=== PATIENT | male | born 1980 | race Caucasian/White ===

== ENCOUNTER 2017-08-12 01:51 | Emergency (ER) | payer BC ==
[~2017-08-12] VITALS: Ht 160 cm; Wt 72.6 kg
[~2017-08-12 01:51] MED LIST: BUSP10TA3 PO
[2017-08-12] MEDS ORDERED: LEVE1000 PO (02:08)
[2017-08-12] MEDS ORDERED: ONDANSETRON 4 MG/2 ML VIAL IV ONE (02:15)
[2017-08-12] MEDS ORDERED: LEVETIRACETAM IV 1,000 MG in IV DEXTROSE 5% 100 ML IV ONE (02:15)
[2017-08-12] MEDS ORDERED: METOCLOPRAMIDE HCL 10 MG/2 ML VIAL IV ONE (02:15)
[2017-08-12] MEDS ORDERED: IV NORMAL SALINE 1000 ML BAG IV ONE (02:15)
[2017-08-12 02:25] LABS: BASOPHILS # (AUTO) 0.2 K/uL (0.0-8.0); BASOPHILS % (AUTO) 1.3 % (0.0-2.0); HEMATOCRIT 47.9 % (40-50); HEMOGLOBIN 16.3 G/DL (14.0-18.0); LYMPHOCYTES # (AUTO) 1.1 K/UL (0.8-4.8); LYMPHOCYTES % (AUTO) 7.9 % (20.5-51.5); MEAN CORPUSCULAR HEMOGLOBIN 28.5 UUG (27.0-31.0); MEAN CORPUSCULAR HGB CONC 34 g/dL (32.0-37.0); MEAN CORPUSCULAR VOLUME 83.6 FL (82.0-92.0); MONOCYTES # (AUTO) 0.5 K/UL (0.1-1.30); MONOCYTES % (AUTO) 3.6 % (0.0-11.0); NEUTROPHILS # (AUTO) 12.5 K/UL (1.8-8.9); NEUTROPHILS % (AUTO) 87.2 % (38.5-71.5); PLATELET COUNT (AUTO) 284 K/UL (150-450); RED BLOOD CELL COUNT(AUTO) 5.73 MIL/UL (4.7-6.1); WHITE BLOOD COUNT (AUTO) 14.3 K/UL (4.0-11.2)
[2017-08-12] MEDS ORDERED: LEVETIRACETAM 500 MG/5 ML VIAL IV ONE (02:30)
[2017-08-12] MEDS ORDERED: METOCLOPRAMIDE HCL 10 MG/2 ML VIAL ONE (02:30)
[2017-08-12] MEDS ORDERED: ONDANSETRON 4 MG/2 ML VIAL ONE (02:31)
[2017-08-12 02:35] LABS: CREATININE 0.9 mg/dL (0.6-1.3); POTASSIUM 3.4 mmol/L (3.5-5.1)
[2017-08-12 02:41] LABS: BILIRUBIN,DIRECT 0.1 mg/dL (0.0-0.2); BILIRUBIN,TOTAL 0.8 mg/dL (0.2-1.0)
[2017-08-12] MEDS ORDERED: LORAZEPAM 0.5 MG TABLET PO ONE (02:45)
[2017-08-12] MEDS ORDERED: IOHEXOL 300MG/ML 100 ML INFUS..BTL ONE (02:54)
[2017-08-12] MEDS ORDERED: NORMAL SALINE FLUSH 10 ML DISP.SYRIN ONE (02:55)
[2017-08-12] MEDS ORDERED: IV NORMAL SALINE 250 ML IV ONE (02:55)
[2017-08-12] MEDS ORDERED: IV D5W-0.45% NS +20 KCL 1,000 ML IV ONE (03:13)
[2017-08-12] MEDS ORDERED: POTASSIUM CHLORIDE 20 MEQ TAB.PRT.SR PO ONE (03:15)
[2017-08-12] MEDS ORDERED: LORAZEPAM 1 MG TABLET ONE (03:27)
[2017-08-12] MEDS ORDERED: POTASSIUM CHLORIDE 20 MEQ TAB.PRT.SR ONE (03:42)
--- NOTE | 2017-08-12 03:58 | NUR ---
mse completed, all meds and iv fluids administered,pt tolerated po fluids and meds, pt had iv d/c'dintact. aci/rx [id number] ,pt got dressed and ambulatyed w/o diff/took all belongings. momtodrive.
[2017-08-12 04:07] VITALS: BP 135/75
== END 2017-08-12 04:00 | disposition home or self-care (01) ==
LOC: ER 01:51
DX: R10.84 Generalized abdominal pain (principal); R11.2 Nausea with vomiting, unspecified; G40.909 Epilepsy, unspecified, not intractable, without status epilepticus; G47.00 Insomnia, unspecified; F11.20 Opioid dependence, uncomplicated
CPT/HCPCS: 36415; 74177; 80048; 80076; 83690; 85025; 96360; 96365; 96375; 99285; A4663; J1953; J2405; J2765; J3490 ×2; J7050; Q9967

== ENCOUNTER 2017-08-14 03:59 | Emergency (ER) | payer BC ==
[~2017-08-14] VITALS: Ht 160 cm; Wt 72.6 kg
[~2017-08-14 03:59] MED LIST changes: -BUSP10TA3 PO; +LEVE1000 PO
[2017-08-14] MEDS ORDERED: ONDA4TAB8 PO (04:07)
[2017-08-14] MEDS ORDERED: DICY20TA32 PO (04:07)
[2017-08-14] MEDS ORDERED: LORA2TAB PO (04:07)
--- NOTE | 2017-08-14 04:10 | NUR ---
Francisca brought into ER by family member for C/O N/V. Was seen here 2 days ago for similar complaint
[2017-08-14] MEDS ORDERED: IV NORMAL SALINE 1000 ML BAG IV ONE (04:15)
[2017-08-14] MEDS ORDERED: ONDANSETRON 4 MG/2 ML VIAL IV ONE (04:15)
[2017-08-14 04:32] LABS: BASOPHILS # (AUTO) 0.1 K/uL (0.0-8.0); BASOPHILS % (AUTO) 0.9 % (0.0-2.0); EOSINOPHILS % (AUTO) 0.1 % (0.0-7.0); HEMATOCRIT 49.7 % (40-50); HEMOGLOBIN 16.6 G/DL (14.0-18.0); LYMPHOCYTES % (AUTO) 7.4 % (20.5-51.5); MEAN CORPUSCULAR HEMOGLOBIN 28.3 UUG (27.0-31.0); MEAN CORPUSCULAR HGB CONC 33 g/dL (32.0-37.0); MEAN CORPUSCULAR VOLUME 84.8 FL (82.0-92.0); MONOCYTES # (AUTO) 0.3 K/UL (0.1-1.30); MONOCYTES % (AUTO) 1.9 % (0.0-11.0); NEUTROPHILS # (AUTO) 11.8 K/UL (1.8-8.9); NEUTROPHILS % (AUTO) 89.7 % (38.5-71.5); PLATELET COUNT (AUTO) 298 K/UL (150-450); RED BLOOD CELL COUNT(AUTO) 5.86 MIL/UL (4.7-6.1); WHITE BLOOD COUNT (AUTO) 13.2 K/UL (4.0-11.2)
[2017-08-14] MEDS ORDERED: ONDANSETRON 4 MG/2 ML VIAL ONE (04:35)
[2017-08-14 04:45] LABS: BILIRUBIN,DIRECT 0.1 mg/dL (0.0-0.2); BILIRUBIN,TOTAL 0.7 mg/dL (0.2-1.0); CREATININE 0.9 mg/dL (0.6-1.3); POTASSIUM 3.7 mmol/L (3.5-5.1)
--- NOTE | 2017-08-14 05:00 | NUR ---
Gave patient PO challenge
--- NOTE | 2017-08-14 05:29 | NUR ---
Patient able to tolerate 200ml of H2O with no N/V
--- NOTE | 2017-08-14 05:30 | NUR ---
IV removed. Catheter intact and site benign. Pressure and 4x4 gauze applied to site. No bleeding noted.
[2017-08-14 05:37] VITALS: BP 138/82
--- NOTE | 2017-08-14 05:37 | NUR ---
Patient discharged to home in stable conditon with brother taking patient home. Written and verbal after care instructions given. Patient verbalizes understanding of instructions. Walked out of ER with no distress noted
== END 2017-08-14 05:38 | disposition home or self-care (01) ==
LOC: ER 04:03
DX: G40.909 Epilepsy, unspecified, not intractable, without status epilepticus (principal); R11.2 Nausea with vomiting, unspecified
CPT/HCPCS: 36415; 83690; 85025; A4663; J2405; J7030

== ENCOUNTER 2017-12-25 10:15 | Inpatient (IN) | payer BC ==
[~2017-12-25] VITALS: Ht 160 cm; Wt 74.8 kg
[~2017-12-25 10:15] MED LIST changes: +DICY20TA32 PO; +LORA2TAB PO; +ONDA4TAB8 PO
[2017-12-25] MEDS ORDERED: ONDANSETRON 4 MG/2 ML VIAL IV ONE (10:30)
[2017-12-25] MEDS ORDERED: FAMOTIDINE. 20 MG/2 ML VIAL IV ONE ×2 (10:30→10:47)
[2017-12-25] MEDS ORDERED: IV NORMAL SALINE 1000 ML BAG IV ONE (10:30)
[2017-12-25] MEDS ORDERED: BUPR1FIL SL (10:32)
--- NOTE | 2017-12-25 10:45 | NUR ---
PT IS IN ROOM #1A. DR GOOD EVALUATED THE PT.
[2017-12-25] MEDS ORDERED: ONDANSETRON 4 MG/2 ML VIAL ONE ×2 (10:47→11:52)
[2017-12-25 10:55] LABS: BASOPHILS % (AUTO) 0.2 % (0.0-2.0); HEMATOCRIT 48.6 % (36.7-47.1); HEMOGLOBIN 16.4 g/dL (12.5-16.3); LYMPHOCYTES # (AUTO) 0.8 K/uL (20.0-40.0); LYMPHOCYTES % (AUTO) 4.7 % (20.5-51.5); MEAN CORPUSCULAR HEMOGLOBIN 29.3 uug (23.8-33.4); MEAN CORPUSCULAR HGB CONC 34 g/dL (32.5-36.3); MEAN CORPUSCULAR VOLUME 86.8 fL (73.0-96.2); MONOCYTES # (AUTO) 0.3 K/uL (2.0-10.0); NEUTROPHILS # (AUTO) 16.4 K/uL (1.8-8.9); NEUTROPHILS % (AUTO) 93.1 % (38.5-71.5); PLATELET COUNT (AUTO) 350 K/uL (152-348); WHITE BLOOD COUNT (AUTO) 17.6 K/uL (3.6-10.2)
[2017-12-25 11:08] LABS: CREATININE 0.9 mg/dL (0.6-1.3); POTASSIUM 4.3 mmol/L (3.5-5.1)
[2017-12-25 11:14] LABS: BILIRUBIN,DIRECT 0.1 mg/dL (0.0-0.2); BILIRUBIN,TOTAL 0.5 mg/dL (0.2-1.0); TOTAL PROTEIN, SERUM 8.6 g/dL (6.4-8.2)
[2017-12-25] MEDS ORDERED: ATROPINE SULFATE 1 MG/10 ML DISP.SYRIN IV ONE (11:45)
[2017-12-25] MEDS ORDERED: ATROPINE SULFATE 1 MG/10 ML DISP.SYRIN ONE (11:50)
[2017-12-25] MEDS ORDERED: ONDANSETRON IV *ER 4 MG/2 ML VIAL IV ONE (12:15)
[2017-12-25 12:34] LABS: *BILIRUBIN,URIN NEGATIVE (NEGATIVE); *BLOOD, URINE 1+ (NEGATIVE); *CLARITY,URINE CLEAR (CLEAR); *COLOR,URINE YELLOW (YELLOW); *KETONES,URINE 3+ (NEGATIVE); *PROTEIN,URINE TRACE (NEGATIVE); *UROBILINOGEN,URINE 0.2 E.U./dl (NORMAL); LEUKOCYTE ESTERASE ,URINE NEGATIVE (NEGATIVE); NITRITE, URINE NEGATIVE (NEGATIVE); PH,URINE 5.5 (5.0-8.0); UGLUCOSE NEGATIVE (NEGATIVE)
[2017-12-25 12:48] LABS: BACTERIA,URINE FEW /HPF (NONE SEEN); SQUAMOUS EPITHELIAL CELL,UR FEW /HPF (NONE SEEN); WBC,URINE 0-3 /HPF (0-3)
[2017-12-25 13:33] LABS: *AMPHETAMINE, URINE NEGATIVE (NEGATIVE); *BARBITURATE, URINE NEGATIVE (NEGATIVE); *CANNABINOID, URINE POSITIVE (NEGATIVE); *COCCAINE, URINE NEGATIVE (NEGATIVE); *OPIATE, URINE NEGATIVE (NEGATIVE); *PHENCYCLIDINE SCREEN,URINE NEGATIVE (NEGATIVE)
--- NOTE | 2017-12-25 15:48 | NUR ---
Pt. admitted to TELE, under care of Dr. Raymundo Belongs List completed
[2017-12-25 16:00] VITALS: BP 155/83
--- NOTE | 2017-12-25 16:00 | NUR ---
RECEIVED PATIENT FROM ED 37 YEARS OLD MALE WITH DX OF BRADYCARDIA PLACED INTO BED FIXED AND MADE COMFORTABLE PATIENT IS ALERT AND ORIENTED.ORIENTED AND EDUCATED ON THIS HOSPITAL PROTOCOL HIS MOM IS AT HIS BEDSIDE AT THIS TIME.IV ON HIS RIGHT ANTECUBITAL REMAIN INTACT FLUSHED PER PROTOCOL.TELE IS SINUS BADY AT 51 AT THIS TIME.MADE COMFORTABLE AND WILL CONTINUE TO OBSERVE.
--- NOTE | 2017-12-25 16:55 | NUR ---
PATIENT IS COMPLAINING OF ABDOMINAL PAIN MORE LIKE ALL OVER HIS ABDOMEN INCLUDING HIS BILATERAL RIB CAGES ASKING FOR PAIN MEDICATION CALLED DR KING SPOKE WITH HIM WITH ORDER TO PLACE PATIENT NOTHING BY MOUTH AND TO ORDER STAT CT ABDOMEN AND PELVIS.
[2017-12-25] MEDS: MORPHINE SULFATE 4 MG/1 ML DISP.SYRIN IV PRN (17:05)
[2017-12-25] MEDS: ONDANSETRON 4 MG/2 ML VIAL IV PRN (17:05)
--- NOTE | 2017-12-25 17:10 | NUR ---
PER THE [facility] SINCE THE PATIENT IS ALLERGIC TO HYDROCODONE PATIENT CANNOT HAVE MORPHINE SO I SPOKE WITH THE PATIENT RE HYDROCODONE ALLERGY AND HE STATED THAT HE IS NOT REALLY ALLERGIC TO HYDROCODONE IT WAS JUST A MADE UP ALLERGY IN ORDER FOR HIM NOT TO TAKE HYDROCODONE SO MD AND THE PHARMACIST MADE AWARE AND MORPHINE ORDERED
--- NOTE | 2017-12-25 17:15 | NUR ---
MORPHINE AND ZOFRAN GIVEN ORDERED PATIENT INSTRUCTED OF NEW ORDERS FOR CT ABDOMEN AND PELVIS PATIENT INSTRUCTED AND HE SIGNED THE CONSCENT MADE COMFORTABLE.
[2017-12-25] MEDS ORDERED: NORMAL SALINE FLUSH 10 ML DISP.SYRIN ONE (17:41)
[2017-12-25] MEDS ORDERED: IV NORMAL SALINE 100 ML ONE (17:42)
[2017-12-25] MEDS ORDERED: IOHEXOL 300MG/ML 100 ML INFUS..BTL ONE (17:43)
--- NOTE | 2017-12-25 19:00 | NUR ---
Recieved patient appears sleeping but easily arousable when name called. Mother at bedside. Pt denies any pain/discomforts at this time. Safety measures and seizure/fall precaution maintained. Continue plan of care.
[2017-12-25] MEDS ORDERED: ACETAMINOPHEN 325 MG TABLET PO PRN (19:15)
[2017-12-25] MEDS: IV 1/2NS 1000 ML 1,000 ML IV PRN (20:09)
[2017-12-25] MEDS: LEVETIRACETAM 250 MG TABLET PO SCH (20:19)
[2017-12-25 20:39] VITALS: BP 126/70
[2017-12-25] MEDS ORDERED: LEVETIRACETAM 500 MG TABLET PO SCH (21:00)
[2017-12-26] VITALS: BP 122/65
[2017-12-26 04:00] VITALS: BP 124/67
[2017-12-26] MEDS: MORPHINE SULFATE 4 MG/1 ML DISP.SYRIN IV PRN ×2 (04:55→11:53)
--- NOTE | 2017-12-26 05:00 | NUR ---
Medicated for complaint of generalized pain. Will monitor.
--- NOTE | 2017-12-26 06:24 | NUR ---
Slept well. Medicated once for pain with relief. No further complaint presented. Urinal within easy reach. Voided well. No fall/ seizure/injury/nausea/vomiting. Sinus carlos on and off 41 is the lowest, asymptomatic. All needs attended and met. Continue care as planned.
[2017-12-26] MEDS ORDERED: PANTOPRAZOLE SODIUM 40 MG TABLET.DR PO SCH (07:00)
[2017-12-26 07:03] LABS: BILIRUBIN,TOTAL 0.6 mg/dL (0.2-1.0); CREATININE 0.8 mg/dL (0.6-1.3); MAGNESIUM 1.9 mg/dL (1.8-2.4); PHOSPHOROUS 2.7 mg/dL (2.5-4.9); POTASSIUM 3.4 mmol/L (3.5-5.1)
[2017-12-26 07:05] LABS: BASOPHILS % (AUTO) 0.1 % (0.0-2.0); EOSINOPHILS % (AUTO) 0.1 % (0.0-7.0); HEMATOCRIT 44.4 % (36.7-47.1); HEMOGLOBIN 14.7 g/dL (12.5-16.3); LYMPHOCYTES # (AUTO) 2.3 K/uL (20.0-40.0); LYMPHOCYTES % (AUTO) 15.5 % (20.5-51.5); MEAN CORPUSCULAR HEMOGLOBIN 28.7 uug (23.8-33.4); MEAN CORPUSCULAR HGB CONC 33 g/dL (32.5-36.3); MEAN CORPUSCULAR VOLUME 86.7 fL (73.0-96.2); MONOCYTES # (AUTO) 0.9 K/uL (2.0-10.0); MONOCYTES % (AUTO) 5.9 % (0.0-11.0); NEUTROPHILS # (AUTO) 11.5 K/uL (1.8-8.9); NEUTROPHILS % (AUTO) 78.4 % (38.5-71.5); PLATELET COUNT (AUTO) 307 K/uL (152-348); RED BLOOD CELL COUNT(AUTO) 5.13 MIL/uL (4.06-5.63); WHITE BLOOD COUNT (AUTO) 14.7 K/uL (3.6-10.2)
[2017-12-26 07:08] LABS: THYROID STIMULATING HORMONE 0.65 mIU/mL (0.358-3.740)
[2017-12-26] MEDS: LEVETIRACETAM 250 MG TABLET PO SCH (08:16)
[2017-12-26 11:21] VITALS: BP 107/65
[2017-12-26] MEDS: IV 1/2NS 1000 ML 1,000 ML IV PRN (11:45)
[2017-12-26] MEDS: ONDANSETRON 4 MG/2 ML VIAL IV PRN (11:53)
[2017-12-26 15:12] VITALS: BP 92/53
[2017-12-26] MEDS ORDERED: POTASSIUM CHLORIDE 20 MEQ TAB.PRT.SR PO ONE (15:15)
--- NOTE | 2017-12-26 17:37 | NUR ---
Family expressing intent to leave, wants patient to be discharged. Family plans to bring patient to their [employer] consultant. MD and nurse discharge planner notified. Discussed with family/patient to wait to speak with hospital's [employer] consultant, family/patient agreed but would still want to be discharged.
--- NOTE | 2017-12-26 17:54 | NUR ---
Patient sleeping/resting in bed throughout the shift, easily arousable, in no distress. Patient is on tele monitor with readings of sinus carlos, sinus rhythm and sinus arrhythmia. Patient is unable to adequately take his diet/meals, stating he is "taking it slow and easy". Patient c/o of generalized pain and nausea, medicated as ordered. Patient no c/o of chest pain/sob.
[2017-12-26] MEDS ORDERED: ATOR20TA PO (19:10)
--- NOTE | 2017-12-26 19:25 | NUR ---
PT RECEIVED IN BED, ASLEEP. WAKES TO NAME. FAMILY AT BEDSIDE. A/OX4. ABLE TO MAKE NEEDS KNOWN. V/S STABLE. IN NO ACUTE DISTRESS. NO C/O PAIN AT THIS TIME. IV INTACT AND PATENT. ON RA, TOLERATING WELL. AFEBRILE. PATIENT DISCHARGE ORDERS RECEIVED. SAFETY MEASURES IMPLEMENTED. CALL LIGHT WITHIN REACH.
--- NOTE | 2017-12-26 20:05 | NUR ---
PT READY FOR DISCHARGE. IV REMOVED. IN STABLE CONDITION. DISCHARGE INSTRUCTIONS PROVIDED AND SIGNED. BELONGINGS LIST SIGNED, SENT HOME WITH PATIENT. ALL NEEDS ATTENDED. SAFETY MAINTAINED.
[2017-12-26 20:31] VITALS: BP 106/74
[2017-12-26] MEDS ORDERED: ATORVASTATIN 20 MG TABLET PO SCH (21:00)
== END 2017-12-26 21:01 | disposition home or self-care (01) | DRG 392 ==
LOC: ER 10:15 → TELE 15:13
PROVIDERS: ADMIT Internal Medicine; ATTEND Internal Medicine
DX: A08.4 Viral intestinal infection, unspecified (principal); E66.9 Obesity, unspecified; G40.909 Epilepsy, unspecified, not intractable, without status epilepticus; R00.1 Bradycardia, unspecified; Z82.49 Family history of ischemic heart disease and other diseases of the circulatory system; Z87.891 Personal history of nicotine dependence; Z68.29 Body mass index [BMI] 29.0-29.9, adult; E87.6 Hypokalemia; F19.90 Other psychoactive substance use, unspecified, uncomplicated; Z79.899 Other long term (current) drug therapy
CPT/HCPCS: 36415; 70030-TC; 71045; 80307; 83690; 83735; 84100; 84443; 85025; 87400; 93005; A4663; J0461; J2270; J2405; J3490; J7030; Q9967